=== PATIENT | male | born 1945 | race Caucasian/White ===

== ENCOUNTER 2019-09-28 19:34 | Emergency (ER) | payer MEDICARE ==
[~2019-09-28] VITALS: Ht 160 cm; Wt 82.2 kg
[2019-09-28] MEDS ORDERED: GLIM4TAB5 PO (19:46)
[2019-09-28] MEDS ORDERED: TAMS1CAP17 PO (19:46)
[2019-09-28] MEDS ORDERED: LOPR1TAB6 (19:46)
[2019-09-28] MEDS ORDERED: ASPI81CH33 PO (19:46)
[2019-09-28] MEDS ORDERED: PRAV40TA2 PO (19:46)
[2019-09-28] MEDS ORDERED: AMLO1TAB24 PO (19:46)
[2019-09-28] MEDS ORDERED: METF500T13 PO (19:46)
[2019-09-28] MEDS ORDERED: FENO134C19 PO (19:46)
[2019-09-28] MEDS ORDERED: LISI40TA4 PO (19:46)
[2019-09-28] MEDS ORDERED: LANTINJ4 SC (19:46)
[2019-09-28] MEDS ORDERED: FISH1000 PO (19:46)
[2019-09-28 20:44] LABS: BASO # 0.1 10^3/uL (0.0-0.2); BASO % 0.4 % (0.0-1.0); EOS % 0.2 % (0.0-3.0); HEMOGLOBIN 10.4 g/dl (13.5-17.5); LYMPH # 1.5 10^3/uL (1.5-5.0); LYMPH % 11.5 % (24.0-44.0); MEAN CORPUSCULAR HEMOGLOBIN 29.5 pg (27.0-33.0); MEAN CORPUSCULAR HGB CONC 35.9 g/dl (32.0-36.5); MEAN CORPUSCULAR VOLUME 82.4 fl (80.0-96.0); MONO # 0.6 10^3/uL (0.0-0.8); MONO % 4.8 % (0.0-5.0); NEUTROPHILS # 10.6 10^3/uL (1.5-8.5); NEUTROPHILS % 82.7 % (36.0-66.0); PLATELET COUNT, AUTOMATED 283 10^3/uL (150-450); RED BLOOD COUNT 3.52 10^6/uL (4.30-6.10); WHITE BLOOD COUNT 12.9 10^3/uL (4.0-10.0)
[2019-09-28 20:54] LABS: INR 1.14; PROTHROMBIN TIME 14.3 SECONDS (11.8-14.0)
[2019-09-28 21:22] LABS: BILIRUBIN, URINE MANUAL OBSCURED (NEGATIVE); GLUCOSE, URINE (UA) MANUAL OBSCURED mg/dL (NEGATIVE); KETONE, URINE MANUAL OBSCURED mg/dL (NEGATIVE); UROBILINOGEN, URINE MANUAL OBSCURED mg/dl (NORMAL)
[2019-09-28 21:29] LABS: RBC, URINE TNTC /hpf (0-3)
[2019-09-28 21:32] LABS: SQUAMOUS EPITHELIAL CELL URINE NONE SEEN /hpf (SMALL AMT)
[2019-09-28 21:33] LABS: BACTERIA, URINE SMALL AMOUNT; HYALINE CAST, URINE NONE SEEN /lpf (0-1)
[2019-09-28] MEDS ORDERED: LIDOCAINE 2% 5ML JELLY UROJET TOP ONE (22:15)
[2019-09-28 23:45] VITALS: BP 121/66
[2019-09-29] MEDS ORDERED: SULF1TAB93 PO (10:37)
[2019-09-29] MEDS ORDERED: ASPI-161 PO (11:43)
[2019-09-29] MEDS ORDERED: METO1TAB7 PO (11:43)
== END 2019-09-28 23:48 | disposition home or self-care (01) ==
LOC: M ED 19:34
DX: R00.2 Palpitations (principal); E78.5 Hyperlipidemia, unspecified; E11.9 Type 2 diabetes mellitus without complications; Z79.82 Long term (current) use of aspirin; Z95.5 Presence of coronary angioplasty implant and graft; Z96.0 Presence of urogenital implants
CPT/HCPCS: 36415; 51703; 80047; 81000; 85025; 85610; 86850; 86900; 86901; 87086; 99284; G0463

== ENCOUNTER 2019-09-29 10:10 | Day surgery (SDC) | payer MEDICARE ==
[~2019-09-29] VITALS: Ht 160 cm; Wt 79.9 kg
[~2019-09-29 10:10] MED LIST: AMLO5TAB6 PO; ASPI81CH33 PO; FENO134C19 PO; FISH1000 PO; GLIM4TAB5 PO; LANTINJ4 SC; LISI40TA PO; LOPR1TAB6; METF500T13 PO; PRAV40TA2 PO; TAMS1CAP17 PO
[2019-09-29] MEDS ORDERED: SULF1TAB93 PO (10:37)
[2019-09-29] MEDS ORDERED: LIDOCAINE 2% 5ML JELLY UROJET TOP ONE (11:15)
[2019-09-29] MEDS ORDERED: NS 1,000 ML IV ONE (11:15)
[2019-09-29] MEDS ORDERED: METO1TAB7 PO (11:43)
[2019-09-29] MEDS ORDERED: ASPI-161 PO (11:43)
[2019-09-29 11:57] LABS: BASO # 0.1 10^3/uL (0.0-0.2); BASO % 0.4 % (0.0-1.0); EOS % 0.3 % (0.0-3.0); HEMATOCRIT 27.2 % (42.0-52.0); HEMOGLOBIN 9.7 g/dl (13.5-17.5); LYMPH # 2.3 10^3/uL (1.5-5.0); LYMPH % 18.1 % (24.0-44.0); MEAN CORPUSCULAR HEMOGLOBIN 29.5 pg (27.0-33.0); MEAN CORPUSCULAR HGB CONC 35.7 g/dl (32.0-36.5); MEAN CORPUSCULAR VOLUME 82.7 fl (80.0-96.0); MONO % 7.3 % (0.0-5.0); NEUTROPHILS # 9.5 10^3/uL (1.5-8.5); NEUTROPHILS % 73.4 % (36.0-66.0); PLATELET COUNT, AUTOMATED 286 10^3/uL (150-450); RED BLOOD COUNT 3.29 10^6/uL (4.30-6.10)
[2019-09-29 12:19] LABS: CK-MB VALUE MASS 4.3 NG/ML (<3.6); CPK CREATINE PHOSPHOKINASE 303 U/L (39-308); MB/CK RELATIVE INDEX 1.42 (< OR =4); TROPONIN I < 0.02 NG/ML (< 0.10)
--- NOTE | 2019-09-29 13:22 | REP ---
TWO-VIEW CHEST: REASON: Preoperative evaluation. PRIORS: None. FINDINGS: The superior mediastinal structures are midline. The cardiac silhouette is unremarkable in size, shape, and position. The diaphragmatic surfaces of the lungs are regular, and the costophrenic angles are clear. The pulmonary carmichael are clear. The imaged osseous structures are intact. IMPRESSION: There is no acute cardiopulmonary disease. Electronically Signed by Samm Salvador DO 09/29/2019 01:30 P
[2019-09-29] MEDS ORDERED: METOCLOPRAMIDE INJ 10MG/2ML VIAL (J2765 PER 1) As Ordered ONE (14:32)
[2019-09-29] MEDS ORDERED: propofoL 200 MG/20 ML VIAL As Ordered ONE (14:32)
[2019-09-29] MEDS ORDERED: ONDANSETRON 4MG/2ML VIAL As Ordered ONE (14:32)
[2019-09-29] MEDS ORDERED: LIDOCAINE 2% 100MG/5ML SDV (FOR ANES.) As Ordered ONE (14:32)
[2019-09-29] MEDS ORDERED: ROCURONIUM BROMIDE 50 MG/5 ML VIAL As Ordered ONE (14:32)
[2019-09-29] MEDS ORDERED: MIDAZOLAM INJ 2MG/2ML VIAL (J2250 PER 1MG) As Ordered ONE (14:32)
[2019-09-29] MEDS ORDERED: fentaNYL 100 MCG/2 ML INJECTION (J3010) As Ordered ONE ×2 (14:33→15:23)
[2019-09-29] MEDS ORDERED: ceFAZolin 2 GM/D5W 50 ML IV BAG (J0690 PER 500MG) As Ordered ONE (14:42)
--- NOTE | 2019-09-29 14:47 | SMCUROLCON ---
Urology Consultation General Date of Consultation 09/29/19 Reason For Consultation This patient is seen for Gross Hematuria. History of Present Illness This is a 74 y/o M w/ a PMH significant for CAD s/p cardiac stents, HTN, HL, and DM2, presenting to the ER w/ gross hematuria. He notes the hematuria started a few days ago and has gotten worse. He was seen in the ER last night and had a 24Fr 3-way catheter placed. He notes that catheter fell out at some point o/n and he has not been able to void since then. He has had blood dripping from his meatus. He had a CT urogram done recently that was notable for a large amount of clot and a possible bladder mass. He denies light headedness or weakness. He denies chest pain or SOB. He is not on blood thinners. He denies dysuria. Past Medical History Medical History see HPI Surgical Hstory see HPI Medications Current Medications Current Medications Medications (Trade) Dose Ordered Sig/Lynnette Route PRN Reason Start Time Stop Time Status Last Admin Dose Admin Home Med (Med Rec Complete!) ASDIRECTED XX 09/29/19 11:45 09/29/19 11:46 DC Allergies Allergies: Coded Allergies: No Known Allergies (Unverified , 09/28/19) Review of Systems Constitutional: Denies: Fever, Chills, Sweats, Weakness, Malaise ENT: Denies: Head Aches, Sore Throat, Epistaxis Skin: Denies: Rash, Lesions, Breakdown, Nail Changes Pulmonary: Denies: Dyspnea, Cough Cardiovascular: Denies Chest Pain, Denies Palpitations Gastrointestinal: Denies: Nausea, Vomiting, Abdominal Pain Genitourinary: Reports: Hematuria, Retention Musculoskeletal: Denies: Neck Pain, Back Pain Psych: Reports: Mood Normal Physical Examination General Exam: Alert, Cooperative Chest Exam: Normal air movement Heart Exam: Regular Rhythm Abdomen Exam: Soft Male Exam 3-way catheter in place w/ dark red urine draining Skin Exam: Nl turgor and temperature Neuro Exam: Normal Speech Psych Exam: Mood NL Vital Signs/I&O Vital Signs Date Time Temp Pulse Resp B/P (MAP) Pulse Ox O2 Delivery O2 Flow Rate FiO2 09/29/19 14:00 98.5 112 20 166/79 (108) 98 Room Air Laboratory Data 24H Labs Laboratory Tests 2 09/29/19 11:36: Immature Granulocyte % (Auto) 0.5, Neutrophils (%) (Auto) 73.4H, Lymphocytes (%) (Auto) 18.1L, Monocytes (%) (Auto) 7.3H, Eosinophils (%) (Auto) 0.3, Basophils (%) (Auto) 0.4, Neutrophils # (Auto) 9.5H, Lymphocytes # (Auto) 2.3, Monocytes # (Auto) 1.0H, Eosinophils # (Auto) 0.0, Basophils # (Auto) 0.1, Nucleated Red Blood Cells % (auto) 0.0, Total Creatine Kinase 303, Creatine Kinase MB 4.3H, Creatine Kinase MB Relative Index 1.42, Troponin I < 0.02 09/29/19 11:45: Coronavirus (COVID-19)(PCR) NEGATIVE CBC/BMP Laboratory Tests 09/29/19 11:36 Assessment This is a 74 y/o M w/ persistent painless gross hematuria. I recommended that we take him to the OR today for cystoscopy, clot evacuation, possible transurethral resection of bladder tumor. After a discussion of the risks and benefits, informed consent was signed. Plan - to OR now - EKG and CXR obtained ER - NPO - 2g chantale LORETO ROY MD Sep 29, 2019 14:47
[2019-09-29] MEDS ORDERED: ceFAZolin SOD 2 GM in IV 1 EA IV ONE (15:00)
[2019-09-29] MEDS ORDERED: PHENYLephrine HCL 500 MCG/5 ML (100MCG/ML) SYRINGE (J2370) As Ordered ONE (15:37)
[2019-09-29] MEDS ORDERED: SUGAMMADEX SODIUM 500 MG/5 ML VIAL (BRIDION) As Ordered ONE (15:39)
[2019-09-29] MEDS ORDERED: fentaNYL 100 MCG/2 ML INJECTION (J3010) IV PRN (16:30)
[2019-09-29] MEDS ORDERED: ONDANSETRON 4MG/2ML VIAL IV PRN (16:30)
[2019-09-29] MEDS ORDERED: oxyCODONE 5MG TAB PO PRN (16:30)
[2019-09-29] MEDS ORDERED: HYDROMORPHONE HCL 0.5 MG/ 0.5 ML SYRINGE (J1170 PER 1) IV PRN (16:30)
[2019-09-29] MEDS ORDERED: ACETAMINOPHEN TAB 650MG DOSE (2X325MG) PO PRN (16:30)
[2019-09-29] MEDS ORDERED: NS 1,000 ML IV SCH (16:30)
[2019-09-29 18:40] VITALS: BP 135/62
--- NOTE | 2019-09-29 18:46 | ECGEPIP ---
[facility] - ED Test Date: 2019-09-29 Pat Name: CARMEN BUCHANAN Department: Room: - Gender: Male Passenger Attendant: : [id number] Requested By: LEONILA Johnson PA-C Order Number: [id number] Reading MD: Tess Guerrero Measurements Intervals Weed Rate: 94 P: 32 HI: 139 QRS: 26 QRSD: 89 T: 60 QT: 332 QTc: 417 Interpretive Statements SINUS RHYTHM ST DEVIATION AND MODERATE T-WAVE ABNORMALITY, CONSIDER LATERAL ISCHEMIA NO PRIOR ECG FOR COMPARISON CLINICAL CORRELATION ADVISED Electronically Signed on 09-29-2019 18:46:34 EDT by Tess Guerrero
--- NOTE | 2019-10-05 06:55 | RO ---
DATE OF PROCEDURE: 09/29/2019 PREPROCEDURE DIAGNOSIS: Gross hematuria. POSTPROCEDURE DIAGNOSIS: Gross hematuria, benign prostatic hyperplasia. PROCEDURE: Cystoscopy, clot evacuation, fulguration of bleeding. SURGEON: Dr. Alec Loza MOTION GRAPHICS DESIGNER: None. ANESTHESIA: General. OPERATIVE INDICATIONS: This is a 74-year-old male with recurrent gross hematuria, and clot urinary retention. He was brought to the operating room today to investigate and treat this. DESCRIPTION OF PROCEDURE: The patient was brought to the operating room and general anesthesia was induced. Prophylactic antibiotics were infused. He was then placed in the dorsal lithotomy position and prepped and draped in the usual sterile fashion. At this point, a resectoscope was inserted into the urethral meatus and advanced into the bladder using the visual obturator. Once inside the bladder, a very large amount of clots was seen. I then utilized a Urovac evacuator to evacuate all the clots from the bladder. A large amount of clots was removed. Ultimately, once they were all removed, I was able to examine the bladder thoroughly. There were no tumors inside the bladder. The bladder was not trabeculated. There were no bladder stones. There did appear to be a small amount of bleeding coming from the patient's prostate. The patient had trilobar benign prostatic hyperplasia with a very large and vascular median lobe protruding into the bladder. There was not significant bleeding at this time but I did cauterize several areas on all three lobes of the prostate with the hope that it would decrease his chance of bleeding again soon. Once satisfied that there was good hemostasis, the resectoscope was removed and then an 18 [place] Coude catheter was inserted into the bladder. Of note, bilateral ureteral orifices were orthotopic and both effluxed clear urine. Once the catheter was placed, the balloon was filled with 10 mL of sterile water and then the catheter was connected to gravity drainage. This marked the conclusion of the procedure. The patient was taken out of the dorsal lithotomy position, awakened from anesthesia and transported to the recovery room in stable condition. Estimated blood loss: 15 mL. Complications: None. Specimen: None. Plan: The patient will followup in the clinic next week for catheter removal, as well as a prostate biopsy for an elevated prostate specific antigen. TOSHIA
== END 2019-09-29 19:00 | disposition home or self-care (01) ==
LOC: M ED 10:10 → M SDC 10:48
PROVIDERS: ATTEND Urology
DX: R31.0 Gross hematuria (principal); N40.0 Benign prostatic hyperplasia without lower urinary tract symptoms; I10 Essential (primary) hypertension; E11.9 Type 2 diabetes mellitus without complications; Z79.84 Long term (current) use of oral hypoglycemic drugs; Z79.899 Other long term (current) drug therapy; Z98.61 Coronary angioplasty status; E78.00 Pure hypercholesterolemia, unspecified; Z79.82 Long term (current) use of aspirin
CPT/HCPCS: 52001; 52224; 71046; 82550; 82553; 84484; 85025; 86850; 86900; 86901; 93005; 96360; 96361; 99285; J0690; J2250; J2370; J2405; J2765; J3010; U0002

== ENCOUNTER → 2019-10-05 | Outpatient (CLI) | payer MEDICARE ==
[~2019-10-05] MED LIST changes: +ASPI-161 PO; +CIPR-249 PO; +DOCU100C16 PO; +METO1TAB7 PO; +PERCOCET PO; +SULF1TAB93 PO
--- NOTE | 2019-10-05 16:58 | REPPI ---
TRANSRECTAL ULTRASOUND PROSTATE WITH ULTRASOUND GUIDANCE FOR PROSTATE BIOPSY: Transrectal ultrasound prostate performed. Prostate measures 5.6 x 8.0 x 6.8 cm for a total volume of 158 mL. Echotexture is heterogeneous. Scattered small cysts and calcifications are noted. There is a nodule anteriorly on the left measuring 13 x 9 mm. Seminal vesicles are symmetrical. Ultrasound guidance was provide for Dr. Loza who performed ultrasound-guided biopsy of the prostate. Electronically Signed by Alfie Omalley MD 10/07/2019 09:51 A
== END ==
LOC: M SMT PRO 08:36 → EDUNIT# 08:45
PROVIDERS: ATTEND Urology
DX: R97.20 Elevated prostate specific antigen [PSA] (principal)
CPT/HCPCS: 55700; 76872; 76942; G0416

== ENCOUNTER → 2019-10-23 | Outpatient (CLI) | payer MEDICARE | LOC: M LABSMTC 10:05 | PROVIDERS: ATTEND Anesthesiology | DX: Z01.818 Encounter for other preprocedural examination (principal); Z11.59 Encounter for screening for other viral diseases | CPT/HCPCS: C9803; U0003 ==

== ENCOUNTER 2019-10-26 10:58 | Inpatient (IN) | payer MEDICARE ==
[~2019-10-26] VITALS: Ht 160 cm; Wt 78.8 kg
[~2019-10-26 10:58] MED LIST changes: +AMLO1TAB24 PO; -AMLO5TAB6 PO; -CIPR-249 PO; -DOCU100C16 PO; +HEPARIN SOD (PORCINE) 5000UNITS/ML 1ML VIAL/SYRINGE SQ ONE; +LIDOCAINE 1% MDV 20ML VIAL SQ PRN; +LR 1,000 ML IV ONE; -PERCOCET PO; +ceFAZolin SOD 2 GM in IV 1 EA IV ONE
[2019-10-26] MEDS ORDERED: D5W 250 ML IV ONE (12:45)
[2019-10-26] MEDS ORDERED: propofoL 200 MG/20 ML VIAL As Ordered ONE (13:22)
[2019-10-26] MEDS ORDERED: METOCLOPRAMIDE INJ 10MG/2ML VIAL (J2765 PER 1) As Ordered ONE (13:22)
[2019-10-26] MEDS ORDERED: LIDOCAINE 2% 100MG/5ML SDV (FOR ANES.) As Ordered ONE (13:22)
[2019-10-26] MEDS ORDERED: ROCURONIUM BROMIDE 50 MG/5 ML VIAL As Ordered ONE ×3 (13:22→17:43)
[2019-10-26] MEDS ORDERED: fentaNYL 250 MCG/5 ML INJECTION (J3010) As Ordered ONE (13:22)
[2019-10-26] MEDS ORDERED: ONDANSETRON 4MG/2ML VIAL As Ordered ONE (13:22)
[2019-10-26] MEDS ORDERED: VANCOMYCIN 1000MG/20ML VIAL As Ordered ONE (13:28)
[2019-10-26] MEDS ORDERED: LIDOCAINE 1% SDV 30ML VIAL As Ordered ONE (13:38)
[2019-10-26] MEDS ORDERED: BUPIVACAINE HCL 0.25% 30ML VIAL As Ordered ONE (13:38)
[2019-10-26] MEDS ORDERED: GENTAMICIN 80 MG in IV 1 EA IV ONE (13:45)
[2019-10-26] MEDS ORDERED: VANCOMYCIN HCL 1,000 MG, VIAL MATE ADAPTER 1 EACH in D5W 250 ML IV ONE (13:45)
[2019-10-26] MEDS ORDERED: HEPARIN SOD (PORCINE) 5000UNITS/ML 1ML VIAL/SYRINGE As Ordered ONE (14:08)
[2019-10-26] MEDS ORDERED: DESFLURANE 240 ML INHALANT As Ordered ONE (15:36)
[2019-10-26] MEDS ORDERED: fentaNYL 100 MCG/2 ML INJECTION (J3010) As Ordered ONE (17:44)
[2019-10-26] MEDS ORDERED: SEVOFLURANE INHAL SOLN 250 ML BTL As Ordered ONE (19:13)
[2019-10-26] MEDS ORDERED: PHENYLephrine HCL 500 MCG/5 ML (100MCG/ML) SYRINGE (J2370) As Ordered ONE (19:36)
[2019-10-26] MEDS ORDERED: ePHEDrine SULFATE 25 MG/5 ML(5MG/ML) SYRINGE As Ordered ONE (20:06)
[2019-10-26] MEDS ORDERED: SUGAMMADEX SODIUM 500 MG/5 ML VIAL (BRIDION) As Ordered ONE (20:43)
[2019-10-26] MEDS: HumaLOG INSULIN (NovoLOG) PER UNIT SC SCH (21:00)
[2019-10-26] MEDS ORDERED: LR 1,000 ML IV SCH (21:30)
[2019-10-26] MEDS ORDERED: GLUCAGON INJ 1MG VIAL SC PRN (21:30)
[2019-10-26] MEDS ORDERED: MEPERIDINE INJ 25 MG/ML VIAL (J2175) IV PRN (21:30)
[2019-10-26] MEDS ORDERED: GLUCOSE 4GM CHEW TABLET PO PRN (21:30)
[2019-10-26] MEDS ORDERED: METOCLOPRAMIDE INJ 10MG/2ML VIAL (J2765 PER 1) IV PRN (21:30)
[2019-10-26] MEDS ORDERED: PERCOCET 5MG/325MG TAB PO PRN (21:30)
[2019-10-26] MEDS ORDERED: MORPHINE 2 MG/ML 1ML VIAL (J2270) IV PRN (21:30)
[2019-10-26] MEDS ORDERED: fentaNYL 100 MCG/2 ML INJECTION (J3010) IV PRN (21:30)
[2019-10-26] MEDS ORDERED: NS 1,000 ML IV SCH (21:30)
[2019-10-26] MEDS ORDERED: ONDANSETRON 4MG/2ML VIAL IV PRN ×2 (21:30)
[2019-10-26] MEDS ORDERED: ACETAMINOPHEN TAB 650MG DOSE (2X325MG) PO PRN (21:30)
[2019-10-26] MEDS ORDERED: DEXTROSE 50% 50 ML SYRINGE IV PRN (21:30)
--- NOTE | 2019-10-26 21:30 | ROOPDOC ---
[facility] Report Of Operation Report of Operation DATE OF PROCEDURE: 10/26/19 PREPROCEDURE DIAGNOSES: Prostate Cancer. POSTPROCEDURE DIAGNOSES: Prostate Cancer. PROCEDURE: Robotic-assisted Laparoscopic Radical Prostatectomy, Bladder Neck Reconstruction. SURGEON: Loreto Farrell MD SUPERINTENDENT MECHANICAL: Sheeba Gupta NP ANESTHESIA: General. OPERATIVE INDICATIONS: This is a 74 year old male with clinical T1c [place] 3+3 prostate cancer, here today for treatment. DESCRIPTION OF PROCEDURE: The patient was brought to the operating room and general anesthesia was induced. Prophylactic antibiotics were infused. He was then placed in the supine position and prepped and draped in the usual sterile fashion. At this point, a Lloyd catheter was inserted into the bladder and the balloon was filled with 10 mL of sterile water. We then made a midline incision just above the umbilicus for an 8 mm port. A Veress needle was utilized to achieve pneumoperitoneum. Next, an 8 mm port was inserted into the incision and subsequently a camera was inserted. There were no injuries from the Veress needle or initial trocar placement. Then three robotic ports were placed in the usual configuration in line just below the level of the umbilicus. A 12 mm assistant spa director port was inserted lateral to the camera port. The robot was then docked. Lysis of adhesions between the sigmoid colon and abdominal wall was then performed. The bladder was then released from the anterior abdominal wall using electrocautery. Once the bladder was dropped, the fat overlying the prostate was cleared using electrocautery. The superficial dorsal vein was controlled with electrocautery. The endopelvic fascia was opened on both sides and the dorsal venous complex was cleared. Next, a #0 Vicryl [id number] stitch was placed around the dorsal venous complex. Once that was done, the bladder was opened and dissected away from the prostate. Of, note this was very difficult as the patient had significant bilobar prostatic hyperplasia with ingrowth into the bladder. Because of the large prostate the resultant bladder neck was at least 8 times the normal bladder neck size. The large lobes of the prostate also made posterior dissection very challenging and therefore I decided not to attempt to dissect out the vasa deferentia and the seminal vesicles. I ligated and transected bilateral prostatic pedicles using the Harmonic scalpel. The pedicles were carried towards the apex. After taking care of the pedicles the dorsal venous complex was transected with electrocautery. The urethra was transected. The prostate was then mobilized off the rectum using cold scissors. At this point, we checked for hemostasis and it appeared very good. Once hemostasis was confirmed, I then moved on to perform the vesicourethral anastomosis. Prior to doing this, I had to reconstruct the bladder neck and taper it down. I did this in 2 layers, first with a running #2-0 Vicryl stitch and then second with an interrupted #2-0 Vicryl stitch to reinforce the closure. Once the bladder neck was tapered down, the vesicourethral anastomosis was performed. The vesicourethral anastomosis was performed in running fashion using a Quill stitch. Once this was done, the final #20-Slovak Lloyd catheter was placed. The balloon was filled with 15 mL of sterile water. Upon completion of the vesicourethral anastomosis, it was tested by filling the bladder with saline. There appeared to be a small leak from the posterior bladder neck. At this point, the prostate was placed in an Endo Catch bag for future retrieval. A Naresh-Marcelo drain was brought in through the left robotic port skin site and the drain was positioned anterior to the bladder. The robot was then undocked. A Rolando-Kerri fascial closure device was utilized to place a #0 Vicryl suture through the fascia of the 12 mm assistant spa director port. The drain was secured to the skin with #2-0 Ethilon suture. The prostate was then extracted from the camera port site after the skin was extended. The fascia in this incision was then closed with a running #0 Vicryl stitch. Next, all the remaining ports were removed and there did not appear to be any bleeding from any of the port sites. The previously placed #0 Vicryl free ties through the assistant spa director port were then tied down and all incisions were irrigated. Last, all of the incisions were closed with running subcuticular #4-0 Monocryl sutures. Local anesthesia was applied. Dermabond was then applied to the incisions. This marked the conclusion of the procedure. The patient was then awakened from anesthesia and transported to the recovery room in stable condition. ESTIMATED BLOOD LOSS: 800 mL. COMPLICATIONS: None. SPECIMENS: Prostate. PLAN: The patient will be admitted to the hospital postoperatively, and he will likely be discharged home within the next 2 days. LORETO FARRELL MD Oct 26, 2019 21:30
[2019-10-26 21:54] LABS: HEMATOCRIT 26.9 % (42.0-52.0); HEMOGLOBIN 8.3 g/dl (13.5-17.5); MEAN CORPUSCULAR HEMOGLOBIN 27.2 pg (27.0-33.0); MEAN CORPUSCULAR HGB CONC 30.9 g/dl (32.0-36.5); MEAN CORPUSCULAR VOLUME 88.2 fl (80.0-96.0); PLATELET COUNT, AUTOMATED 415 10^3/uL (150-450); RED BLOOD COUNT 3.05 10^6/uL (4.30-6.10); WHITE BLOOD COUNT 21.8 10^3/uL (4.0-10.0)
[2019-10-26 22:15] VITALS: BP 133/54
[2019-10-26 22:17] LABS: CALCIUM LEVEL 7.9 MG/DL (8.8-10.2); CREATININE FOR GFR 2.45 MG/DL (0.70-1.30); GLOMERULAR FILTRATION RATE 27.7 (>42); POTASSIUM SERUM 5.7 MEQ/L (3.5-5.1)
[2019-10-26 22:45] VITALS: BP 130/58
[2019-10-26] MEDS: HEPARIN SOD (PORCINE) 5000UNITS/ML 1ML VIAL/SYRINGE SC SCH (22:52)
[2019-10-26] MEDS: DOCUSATE SODIUM 100 MG CAP PO SCH (22:52)
[2019-10-26] MEDS: ceFAZolin SOD 1 GM in D5W MINI-BAG PLUS 50 ML IV SCH (23:13)
[2019-10-26 23:15] VITALS: BP 129/51
[2019-10-27] VITALS (18 sets, daily range): BP systolic 114–144; BP diastolic 51–83
[2019-10-27] MEDS: PERCOCET 5MG/325MG TAB PO PRN ×4 (05:13→19:38)
[2019-10-27 05:42] LABS: HEMATOCRIT 24.4 % (42.0-52.0); HEMOGLOBIN 7.7 g/dl (13.5-17.5); MEAN CORPUSCULAR HEMOGLOBIN 26.8 pg (27.0-33.0); MEAN CORPUSCULAR HGB CONC 31.6 g/dl (32.0-36.5); PLATELET COUNT, AUTOMATED 325 10^3/uL (150-450); RED BLOOD COUNT 2.87 10^6/uL (4.30-6.10); WHITE BLOOD COUNT 12.6 10^3/uL (4.0-10.0)
[2019-10-27 06:06] LABS: CALCIUM LEVEL 8.4 MG/DL (8.8-10.2); CREATININE FOR GFR 2.01 MG/DL (0.70-1.30); GLOMERULAR FILTRATION RATE 34.8 (>42); POTASSIUM SERUM 4.8 MEQ/L (3.5-5.1)
[2019-10-27] MEDS: ceFAZolin SOD 1 GM in D5W MINI-BAG PLUS 50 ML IV SCH ×3 (06:37→21:00)
[2019-10-27] MEDS: HEPARIN SOD (PORCINE) 5000UNITS/ML 1ML VIAL/SYRINGE SC SCH ×3 (06:37→21:01)
[2019-10-27] MEDS: HumaLOG INSULIN (NovoLOG) PER UNIT SC SCH ×4 (07:30→21:00)
--- NOTE | 2019-10-27 08:02 | IPNPDOC ---
Subjective Review oF Systems Chief Complaint The patient is a 74-year-old male admitted with a reason for visit of Prostate Cancer. Events since Last Encounter No acute events o/n. Good pain control. No n/v. Has not ambulated yet. No f/c/ns. Objective Physical Examination General Exam: Alert, Cooperative, No Acute Distress ABDOMEN EXAM: Soft, Tenderness (mild), Other (nondisstended; incisions clean/dry/intact; DANNY w/ serosang output) Skin Exam: Nl turgor and temperature Neuro Exam: Normal Speech Psych Exam: Mental status NL, Mood NL Other physical findings catheter draining light pink urine Vital Signs/I&O Vital Signs Date Time Temp Pulse Resp B/P (MAP) Pulse Ox O2 Delivery O2 Flow Rate FiO2 10/27/19 06:00 98.1 90 16 133/71 (91) 97 Nasal Cannula 2.0 I&O- Last 24 Hours up to 6 AM 10/27/19 06:00 Intake Total 3480 ml Output Total 895 ml Balance 2585 ml Laboratory Data Labs 24H Laboratory Tests 2 10/26/19 11:37: Bedside Glucose (Misc Panel) 62L 10/26/19 21:31: Nucleated Red Blood Cells % (auto) 0.0, Anion Gap 15, Glomerular Filtration Rate 27.7L, Calcium Level 7.9L 10/26/19 21:55: Bedside Glucose (Misc Panel) 232H 10/27/19 05:03: Nucleated Red Blood Cells % (auto) 0.0, Anion Gap 6L, Glomerular Filtration Rate 34.8L, Calcium Level 8.4L CBC/BMP Laboratory Tests 10/26/19 21:31 10/27/19 05:03 FSBS Laboratory Tests Test 10/26/19 11:37 10/26/19 21:55 Range/Units Bedside Glucose (Misc Panel) 62 232 83-110 MG/DL Assessment/Plan Date Seen The patient was seen on 10/27/19. Patient Summary This is a 74 y/o M POD1 s/p RALP w/ bladder neck reconstruction. Good UOP. Minimal DANNY output. Hb 7.7 (patient anemic at baseline w/ preop Hb 9.7). Cr trending down, 2 this morning. Plan/VTE VTE Prophylaxis Ordered?: Yes VTE Exclusion Mechanical Proph: N/A:VTE Prophy Ordered VTE Exclusion Pharmacological: N/A:VTE Prophy Ordered Plan/Urinary Catheter Urinary Catheter: Other Catheter: (catheter will need to stay in for at least 14 days for the bladder to heal) Plan - d/c IVF - transfuse 2u PRBC - strict I/Os - cont home meds - SCDs in bed - ambulate - SQH - incentive spirometry - clears for now LORETO FARRELL MD Oct 27, 2019 08:01
[2019-10-27] MEDS: DOCUSATE SODIUM 100 MG CAP PO SCH ×2 (08:59→20:59)
[2019-10-27] MEDS: amLODIPine 5 MG TAB PO SCH (09:00)
[2019-10-27] MEDS: PRAVASTATIN 20 MG TAB PO SCH (09:00)
[2019-10-27] MEDS: lisinopriL 40 MG TAB PO SCH (09:00)
[2019-10-27] MEDS: METOPROLOL SUCC *XL* 25MG TAB (TopROL *XL*) PO SCH (09:01)
[2019-10-27] MEDS ORDERED: VANCOMYCIN HCL 1,000 MG, VIAL MATE ADAPTER 1 EACH in D5W 250 ML IV SCH (14:00)
[2019-10-27] MEDS ORDERED: GENTAMICIN 80 MG in IV 1 EA IV SCH (15:00)
[2019-10-28] MEDS: PERCOCET 5MG/325MG TAB PO PRN ×3 (01:36→12:36)
[2019-10-28 02:00] VITALS: BP 130/76
[2019-10-28 04:20] VITALS: O2SAT 95
[2019-10-28] MEDS: HEPARIN SOD (PORCINE) 5000UNITS/ML 1ML VIAL/SYRINGE SC SCH ×2 (05:37→12:31)
[2019-10-28] MEDS: ceFAZolin SOD 1 GM in D5W MINI-BAG PLUS 50 ML IV SCH (05:37)
[2019-10-28 06:00] VITALS: BP 114/67
[2019-10-28 06:11] LABS: CREATININE FOR GFR 1.44 MG/DL (0.70-1.30); GLOMERULAR FILTRATION RATE 51.2 (>42); POTASSIUM SERUM 4.4 MEQ/L (3.5-5.1)
[2019-10-28 06:13] LABS: HEMATOCRIT 31.7 % (42.0-52.0); MEAN CORPUSCULAR HEMOGLOBIN 27.2 pg (27.0-33.0); MEAN CORPUSCULAR HGB CONC 32.5 g/dl (32.0-36.5); MEAN CORPUSCULAR VOLUME 83.9 fl (80.0-96.0); PLATELET COUNT, AUTOMATED 322 10^3/uL (150-450); RED BLOOD COUNT 3.78 10^6/uL (4.30-6.10); WHITE BLOOD COUNT 11.8 10^3/uL (4.0-10.0)
[2019-10-28 06:17] LABS: HEMOGLOBIN 10.3 g/dl (13.5-17.5)
[2019-10-28] MEDS: HumaLOG INSULIN (NovoLOG) PER UNIT SC SCH ×2 (07:30→12:32)
--- NOTE | 2019-10-28 07:55 | IPNPDOC ---
Subjective Review oF Systems Chief Complaint The patient is a 74-year-old male admitted with a reason for visit of Prostate Cancer. Events since Last Encounter No acute events o/n. Good pain control. Patient has ambulated w/o difficulty. Tolerating regular diet. No n/v. No flatus yet. No f/c/ns. Objective Physical Examination General Exam: Alert, Cooperative, No Acute Distress ABDOMEN EXAM: Soft, Tenderness (mild), Other (nondisstended; incisions clean/ dry/intact; DANNY w/ serous output) Skin Exam: Nl turgor and temperature Neuro Exam: Normal Speech Psych Exam: Mental status NL, Mood NL Other physical findings catheter draining clear yellow urine Vital Signs/I&O Vital Signs Date Time Temp Pulse Resp B/P (MAP) Pulse Ox O2 Delivery O2 Flow Rate FiO2 10/28/19 06:08 16 Room Air 10/28/19 06:00 97.9 77 114/67 (83) 92 10/27/19 10:00 2.0 I&O- Last 24 Hours up to 6 AM 10/28/19 06:00 Intake Total 2820 ml Output Total 3050 ml Balance -230 ml Laboratory Data Labs 24H Laboratory Tests 2 10/27/19 11:30: Bedside Glucose (Misc Panel) 145H 10/27/19 16:46: Bedside Glucose (Misc Panel) 136H 10/27/19 21:28: Bedside Glucose (Misc Panel) 147H 10/28/19 05:34: Nucleated Red Blood Cells % (auto) 0.0, Anion Gap 3L, Glomerular Filtration Rate 51.2, Calcium Level 9.0 CBC/BMP Laboratory Tests 10/28/19 05:34 FSBS Laboratory Tests Test 10/27/19 11:30 10/27/19 16:46 10/27/19 21:28 Range/Units Bedside Glucose (Misc Panel) 145 136 147 83-110 MG/DL Assessment/Plan Date Seen The patient was seen on 10/28/19. Patient Summary This is a 74 y/o M POD2 s/p RALP w/ bladder neck reconstruction. His Hb responded well to the 2u PRBC, now 10.3. His Cr is trending down, now 1.4. Good UOP. Minimal DANNY output. Plan/VTE VTE Prophylaxis Ordered?: Yes VTE Exclusion Mechanical Proph: N/A:VTE Prophy Ordered VTE Exclusion Pharmacological: N/A:VTE Prophy Ordered Plan/Urinary Catheter Urinary Catheter: Other Catheter: (catheter will need to stay in for at least 14 days for the bladder to heal) Plan - percocet prn pain - continue home meds - strict I/Os - SCDs in bed - ambulate - incentive spirometry - SQH - regular diet - likely discharge home later today w/ catheter and DANNY drain LORETO FARRELL MD Oct 28, 2019 07:55
[2019-10-28 09:00] VITALS: BP 138/78
[2019-10-28] MEDS: lisinopriL 40 MG TAB PO SCH (10:31)
[2019-10-28] MEDS: DOCUSATE SODIUM 100 MG CAP PO SCH (10:31)
[2019-10-28] MEDS: PRAVASTATIN 20 MG TAB PO SCH (10:33)
[2019-10-28] MEDS: amLODIPine 5 MG TAB PO SCH (10:33)
[2019-10-28 10:34] VITALS: BP 138/78
[2019-10-28] MEDS: METOPROLOL SUCC *XL* 25MG TAB (TopROL *XL*) PO SCH (10:34)
[2019-10-28] MEDS ORDERED: DOCU100C16 PO (13:10)
[2019-10-28] MEDS ORDERED: PERCOCET PO (13:10)
[2019-10-28] MEDS ORDERED: CIPR-249 PO (13:10)
[2019-10-28 14:00] VITALS: BP 139/59
--- NOTE | 2019-11-07 23:22 | DSES ---
DATE OF ADMISSION: 10/26/2019 DATE OF DISCHARGE: 10/28/2019 ADMISSION DIAGNOSIS: 1. Prostate cancer. DISCHARGE DIAGNOSIS: 1. Prostate cancer, anemia. ADMITTING PHYSICIAN: Alec Loza MD. DISCHARGE PHYSICIAN: Alec Loza MD. PROCEDURE PERFORMED: Robotic assisted laparoscopic radical prostatectomy with bladder neck reconstruction on October 26, 2019. HISTORY OF PRESENT ILLNESS: This is a 74-year-old male with prostate cancer and urinary retention, who underwent the above procedure. He was admitted to the hospital postoperatively. HOSPITALIZATION COURSE: The patient was admitted to the hospital after undergoing the above procedure. His postoperative course was notable for a gradual drop in his hemoglobin to 7.7 postoperative day #1. This was not surprising as he was anemic at baseline with a preoperative hemoglobin of 9.7. Given his age and cardiac history, the decision was made to transfuse him 2 units of packed red blood cells on postoperative day #1. He tolerated this well. Also of note, his serum creatinine on postoperative day #1 was 2 from a baseline of 1.2. He had excellent urine output on postoperative day #1 with very minimal output from his Naresh-Marcelo drain. On postoperative day #2, his hemoglobin level seemed to up to 10.2 after this transfusion. Also, his serum creatinine started trending down and was 1.4 on postoperative day #2. He continued to have excellent urine output and minimal output from the Naresh-Marcelo drain. By postoperative day #2, he was ambulating well. He had very good pain control on oral pain medication. Also, his diet had been advanced and he is tolerating a regular diet. Since the patient was doing well, he was deemed ready for discharge home on postoperative day #2. He was discharge home with both his catheter and his Naresh-Marcelo drain in place. The plan is for him to keep his catheter and drain in for two weeks. We are keeping the catheter in for longer given the extensive bladder neck reconstruction that was necessary. We will get a cystogram prior to removing his catheter and then will go for his pathology also his followup appointment. We will also remove his Naresh-Amrcelo drain at that time. TOSHIA
== END 2019-10-28 14:05 | disposition home or self-care (01) | DRG 714 ==
LOC: M SDC 10:58 → M MSPAV 22:14 → M SDC 10-27 16:34 → M MSPAV 10-27 16:35
PROVIDERS: ADMIT Urology; ATTEND Urology
PROC: 8E0W4CZ Robotic Assisted Procedure of Trunk Region, Percutaneous Endoscopic Approach (ICD-10-PCS; 2019-10-26)
PROC: 0VT08ZZ Resection of Prostate, Via Natural or Artificial Opening Endoscopic (ICD-10-PCS; principal; 2019-10-26 12:45)
DX: C61 Malignant neoplasm of prostate (principal); D64.9 Anemia, unspecified

== ENCOUNTER → 2019-11-08 | Outpatient (CLI) | payer MEDICARE ==
[~2019-11-08] MED LIST changes: +CIPR-249 PO; +CYSTO-CONRAY II 17.2% 250ML VIAL (Q9958) As Ordered ONE; +DOCU100C16 PO; -HEPARIN SOD (PORCINE) 5000UNITS/ML 1ML VIAL/SYRINGE SQ ONE; -LIDOCAINE 1% MDV 20ML VIAL SQ PRN; -LR 1,000 ML IV ONE; +PERCOCET PO; -ceFAZolin SOD 2 GM in IV 1 EA IV ONE
--- NOTE | 2019-11-08 23:30 | REP ---
REASON: Assess for urine extravasation. Four spot views of the urinary bladder were obtained during cystography. Contrast-opacified urinary bladder shows no evidence of extravasation of contrast. There is a filling defect in the urinary bladder floor, consistent with a Lloyd balloon catheter. Electronically Signed by Samm Salvador DO 11/09/2019 11:32 A
== END ==
LOC: M RADPRO 10:22
PROVIDERS: ATTEND Urology
DX: R32 Unspecified urinary incontinence (principal)
CPT/HCPCS: 51600; 74430; Q9958

== ENCOUNTER → 2020-07-11 | Outpatient (CLI) | payer MEDICARE ==
[~2020-07-11] MED LIST changes: +BICA50TA9 PO; -CYSTO-CONRAY II 17.2% 250ML VIAL (Q9958) As Ordered ONE; -LISI40TA PO; +LISI40TA4 PO
--- NOTE | 2020-07-11 13:38 | RADONC.CN ---
Radiation Oncology Hx/Consult Radiation Oncology Consult Date of Service: Jul 11, 2020 Pt Identifier Alvarez Olmedo is a 75 year old male former smoker with prostate cancer [id number] [place] 3+4=7 post operative PSA detectable, most recently rising to 0.76 on 06/26/20. He is s/p RALP on 10/26/19. Diagnosis/Treatment History Oncologic History Followed by Dr. Farrell for massively enlarged prostate and acute retention requiring catheterization He had known T1c [place] 3+3=6 in 4/12 cores s/p biopsy on 10/05/19 complicated by acute retention He underwent RALP on 10/26/19 [id number] [place] 3+4=7 involving <2% of the prostate gland margins negative. Prostate was PSA history: 06/27/19 7.64 01/31/20 0.84 03/20/20 0.70 05/16/20 0.65 06/26/20 0.76 IPSS 2 ADELSO 4 Interval History Feels well overall. Has complete ED, not a priority for him. He has no incontinence or difficulties with frequency or urgency. He has regular bowel movements daily. 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 Appetite good and weight stable. Past Medical History: CAD DMII HPL HTN Past Surgical History: PCI with stents x 2 Family History: No significant cancer history Social History: Former smoker Does not drink Allergies / Meds Allergies: Coded Allergies: No Known Allergies (Unverified , 10/26/19) Home Meds Active Scripts Bicalutamide (Bicalutamide) 50 Mg Tablet, 1 TAB PO DAILY for 30 Days, #30 TAB Prov:BRENDAN BE MD 07/11/20 Ciprofloxacin HCl (Cipro) 500 Mg Tablet, 500 MG PO DAILY for 14 Days, #14 TAB Prov:LORETO FARRELL MD 10/28/19 Oxycodone/Acetaminophen (Oxycodone-Acetaminophen 5-325) 1 Each Tablet, 1 TAB PO Q4H PRN for MODERATE/SEVERE PAIN (PS 5-10) MDD 6, #30 TAB Prov:LORETO FARRELL MD 10/28/19 Docusate Sodium (Docusate Sodium) 100 Mg Capsule, 100 MG PO BID for 10 Days, #20 CAP Prov:LORETO FARRELL MD 10/28/19 Reported Medications Aspirin (Aspirin EC) 81 Mg Tablet.dr, 81 MG PO DAILY 09/29/19 Metoprolol Succinate (Metoprolol Succinate) 50 Mg Tab.er.24h, 75 MG PO DAILY 09/29/19 Insulin Glargine,Hum.rec.anlog (Lantus Solostar) 100 Unit/1 Ml Insuln.pen, 20 UNITS SC QHS 09/28/19 [place]-3 Fatty Acids/Fish Oil (Fish Oil 1,000 mg Capsule) 1 Each Capsule, 1200 MG PO DAILY 09/28/19 Glimepiride (Glimepiride) 4 Mg Tablet, 4 MG PO DAILY 09/28/19 Amlodipine Besylate (Amlodipine Besylate) 5 Mg Tablet, 5 MG PO DAILY 09/28/19 Lisinopril (Lisinopril) 40 Mg Tablet, 40 MG PO DAILY 09/28/19 Metformin HCl (Metformin HCl) 500 Mg Tablet, 1000 MG PO BID 09/28/19 Pravastatin Sodium (Pravastatin Sodium) 40 Mg Tablet, 40 MG PO DAILY 09/28/19 Fenofibrate,Micronized (Fenofibrate) 134 Mg Capsule, 134 MG PO DAILY 09/28/19 Review of Systems Constitutional: Denies: Chills, Fever, Night Sweats Eyes: Denies: Pain, Vision change HEENT: Denies: Head Aches, Dysphagia, Sore Throat Skin: Denies: Rash, Lesions, Bruising Pulmonary: Denies: Dyspnea, Cough Cardiovascular: Denies: Chest Pain, Palpitations, Edema Gastrointestinal: Denies: Nausea, Vomiting, Abdominal Pain, Diarrhea Genitourinary: Denies: Dysuria, Frequency, Incontinence Hematologic: Denies: Bruising, Petecchia, Enlarged Lymph Nodes Musculoskeletal: Denies: Neck pain, Back pain Neurological: Denies: Weakness, Numbness, Incoordination Psych: Reports: Mood Normal; Denies: Memory Issues, Thoughts of Self Harm Vital Signs Ht 63" Wt 168 lbs BMI 30 T 98 P 78 RR 18 BP 160/70 O2 98% Pain 0 Fatigue 0 General Exam: Positive: Alert, Cooperative, No Acute Distress Eye Exam: Positive: PERRLA, EOMI ENT EXAM: Positive: Mucous membr. moist/pink, Pharynx Normal Neck Exam: Negative: Thyromegaly, Lymphadenopathy Chest Exam: Positive: Normal air movement; Negative: Rales, Rhonchi, Wheezing Heart Exam: Positive: Rate Normal, Regular Rhythm Abdomen Exam: Positive: Soft; Negative: Tenderness, Mass Extremity Exam: Negative: Edema, Tenderness Skin Exam: Positive: Nl turgor and temperature; Negative: Rash Neuro Exam: Positive: Normal Gait, Normal Speech, Cranial Nerves 3-12 NL Psych Exam: Positive: Mental status NL, Mood NL, Memory Intact Diagnostic and Laboratory Diagnostic Review Radiologic images, relevant labs and pathology reports were personally reviewed and discussed with Mr. Olmedo. Assessment and Plan Impression Mr. Olmedo is a 75 year old male former smoker with prostate cancer [id number] [place] 3+4=7 post operative PSA detectable, most recently rising to 0.76 on 06/26/20. He is s/p RALP on 10/26/19. Stage Prostate adenocarcinoma [id number] [place] 3+4=7 post-op PSA to 0.76 Performance Status ECOG 0 Plan We had an extensive discussion with Mr. Olmedo regarding the diagnosis at hand and available therapeutic options. He had by reports a massively enlarged prostate such that at the time of surgery his PSA density was very low. He is well, urinating without difficulty, has ED but not bothersome. I reviewed the [facility] nomogram for bPFS with salvage RT with him. Without ADT the probability of 6 year bPFS is 55% based on his data. With 6 months ADT the probability increases to 75%. Based on this I recommend we proceed with salvage RT 68.4 Gy to the prostate bed and SV, and also a lower dose to pelvic LN as these were not sampled at the time of surgery, and based on the results of the SPPORT trial which suggest a benefit for pelvic RT with PSA levels in excess of 0.34. With this I will give 6 months of lupron. In preparation for lupron he can begin casodex 50 mg daily for the next 30 days. I reviewed the side effects of treatment with him, including fatigue, diarrhea, irritative voiding symptoms, and late rectal bleeding from RT and also fatigue, weight gain, and hot flashes with lupron. He agreed to proceed. We discussed the logistics of receiving radiation therapy in detail including the need for a 1-time planning session. This can occur in ~ 2 weeks on the day of his lupron injection. After discussing the risks, benefits and alternatives to radiation therapy, Mr. Olmedo was amenable to pursuing radiotherapy. All questions were answered to the patient's satisfaction. We instructed the patient that if there were any questions,concerns or changes in clinical status in the interim to contact us. Recommendations Salvage RT 68.4 Gy in 38 fractions with VMAT 6 month ADT Casodex 50 mg daily in anticipation of lupron Billing Statement Total time of [47] minutes was spent preparing for the visit [6], obtaining HPI [5], examining the patient [3], reviewing diagnostic tests [7], discussing management options [12], coordinating care [3], and writing this note [10]. BRENDAN BE MD Jul 11, 2020 13:38
== END ==
LOC: M ONCR 10:41
PROVIDERS: ATTEND General Practice
DX: C61 Malignant neoplasm of prostate (principal)

== ENCOUNTER 2020-07-25 13:17 | Outpatient (RCR) | payer MEDICARE ==
[~2020-07-25 13:17] MED LIST changes: +BACTDSTA PO; -SULF1TAB93 PO
[2020-07-25] MEDS ORDERED: LEUPROLIDE 45MG SYRINGE KIT (LUPRON DEPOT) (FOR ONCOLOGY) IM ONE (14:00)
[2020-07-25] MEDS ORDERED: LEUPROLIDE ACETATE 45 MG ONE (14:00)
== END 2020-07-26 ==
LOC: M ONCR 13:17
PROVIDERS: ATTEND General Practice
DX: C61 Malignant neoplasm of prostate (principal)
CPT/HCPCS: 77334; 96401; J9217

== ENCOUNTER → 2020-08-25 | Outpatient (RCR) | payer MEDICARE ==
[~2020-08-25] MED LIST changes: -BACTDSTA PO; +SULF1TAB93 PO
== END ==
LOC: M ONCR 07-28 14:16
PROVIDERS: ATTEND General Practice
DX: C61 Malignant neoplasm of prostate (principal)

== ENCOUNTER 2020-09-22 10:43 | Outpatient (RCR) | payer MEDICARE ==
[~2020-09-22 10:43] MED LIST changes: +BACTDSTA PO; -SULF1TAB93 PO
== END 2020-09-25 ==
LOC: M ONCR 10:43
PROVIDERS: ATTEND General Practice
DX: C61 Malignant neoplasm of prostate (principal)

== ENCOUNTER 2020-09-28 10:42 | Outpatient (RCR) | payer MEDICARE | END 2020-10-25 | LOC: M ONCR 10:42 | PROVIDERS: ATTEND General Practice | DX: C61 Malignant neoplasm of prostate (principal) ==

== ENCOUNTER → 2021-03-02 | Outpatient (CLI) | payer MEDICARE ==
--- NOTE | 2021-03-02 13:50 | RADONC ---
Radiation Oncology Hx/FUP Radiation Oncology Hx/FUP Date of Service: Mar 02, 2021 Pt Identifier Alvarez Olmedo is a 76 year old male former smoker seen for a followup visit today at the department of radiation oncology for a history of prostate cancer [id number] [place] 3+4=7 post operative PSA detectable, most recently rising to 0.76 on 06/26/20. He is s/p RALP on 10/26/19. He completed salvage RT 68.4 Gy in 38 fractions 08/07/20-09/28/20, he had 45 mg Lupron with this on 07/25/20. Diagnosis/Treatment History Oncologic History Followed by Dr. Farrell for massively enlarged prostate and acute retention requiring catheterization He had known T1c [place] 3+3=6 in 4/12 cores s/p biopsy on 10/05/19 complicated by acute retention He underwent RALP on 10/26/19 [id number] [place] 3+4=7 involving <2% of the prostate gland margins negative. Prostate was PSA history: 06/27/19 7.64 01/31/20 0.84 03/20/20 0.70 05/16/20 0.65 06/26/20 0.76 02/22/21 0.03 Testosterone 02/22/21 20 Interval History Hesham reports no bowel or bladder difficulties at this time. His main bother is persistent fatigue, which has been ever-present over the last few months. He is still able to do all the things he likes to do, just has less stamina while doing them. Current Therapy Surveillance Stage Prostate adenocarcinoma [id number] [place] 3+4=7 post-op PSA to 0.76 Social History: Former smoker Does not drink Allergies / Meds Allergies: Coded Allergies: No Known Allergies (Unverified , 10/26/19) Home Meds Active Scripts Bicalutamide (Bicalutamide) 50 Mg Tablet, 1 TAB PO DAILY for 30 Days, #30 TAB Prov:BRENDAN BE MD 07/11/20 Ciprofloxacin HCl (Cipro) 500 Mg Tablet, 500 MG PO DAILY for 14 Days, #14 TAB Prov:LORETO FARRELL MD 10/28/19 Oxycodone/Acetaminophen (Oxycodone-Acetaminophen 5-325) 1 Each Tablet, 1 TAB PO Q4H PRN for MODERATE/SEVERE PAIN (PS 5-10) MDD 6, #30 TAB Prov:LORETO FARRELL MD 10/28/19 Docusate Sodium (Docusate Sodium) 100 Mg Capsule, 100 MG PO BID for 10 Days, #20 CAP Prov:LORETO FARRELL MD 10/28/19 Reported Medications Aspirin (Aspirin EC) 81 Mg Tablet.dr, 81 MG PO DAILY 09/29/19 Metoprolol Succinate (Metoprolol Succinate) 50 Mg Tab.er.24h, 75 MG PO DAILY 09/29/19 Insulin Glargine,Hum.rec.anlog (Lantus Solostar) 100 Unit/1 Ml Insuln.pen, 20 UNITS SC QHS 09/28/19 [place]-3 Fatty Acids/Fish Oil (Fish Oil 1,000 mg Capsule) 1 Each Capsule, 1200 MG PO DAILY 09/28/19 Glimepiride (Glimepiride) 4 Mg Tablet, 4 MG PO DAILY 09/28/19 Amlodipine Besylate (Amlodipine Besylate) 5 Mg Tablet, 5 MG PO DAILY 09/28/19 Lisinopril (Lisinopril) 40 Mg Tablet, 40 MG PO DAILY 09/28/19 Metformin HCl (Metformin HCl) 500 Mg Tablet, 1000 MG PO BID 09/28/19 Pravastatin Sodium (Pravastatin Sodium) 40 Mg Tablet, 40 MG PO DAILY 09/28/19 Fenofibrate,Micronized (Fenofibrate) 134 Mg Capsule, 134 MG PO DAILY 09/28/19 Review of Systems Review of Systems Constitutional: Reports: Fatigue; Denies: Weight Loss Eyes: Denies: Pain HEENT: Denies: Head Aches Gastrointestinal: Denies: Abdominal Pain, Diarrhea, Hematochezia Genitourinary: Denies: Dysuria, Frequency, Incontinence Neurological: Denies: Weakness, Numbness Psych: Reports: Mood Normal Physical Examination Vital Signs Ht 63" Wt 172.6 lbs BMI 30.5 T 96.1 P 80 RR 17 BP 155/78 O2 97% Pain 0 Fatigue 6 General Exam: Alert, Cooperative, No Acute Distress Eye Exam: EOMI ENT EXAM: Atraumatic Neck Exam: Supple Chest Exam: Clear to auscultation Heart Exam: Rate Normal Abdomen Exam: Soft Extremity Exam: Negative: Edema Skin Exam: Nl turgor and temperature Neuro Exam: Normal Gait, Normal Speech, Cranial Nerves 3-12 NL Psych Exam: Mental status NL Diagnostic and Laboratory Diagnostic Review Radiologic images, relevant labs and pathology reports were personally reviewed and discussed with Mr. Olmedo. Assessment and Plan Impression Assessment Mr. Olmedo is a 76 year old male former smoker seen for a followup visit today at the department of radiation oncology for a history of prostate cancer [id number] [place] 3+4=7 post operative PSA detectable, most recently rising to 0.76 on 06/26/20. He is s/p RALP on 10/26/19. He completed salvage RT 68.4 Gy in 38 fractions 08/07/20-09/28/20, he had 45 mg Lupron with this on 07/25/20. He is doing well from a bowel and bladder standpoint with no bothersome symptoms. He is bothered by persistent fatigue, suspect this is mostly due to continued effect of ADT on testosterone levels which remain castrate. I reassured him that with the return of normal testosterone, the fatigue would likely curly. Hopefully this will occur over the coming months. His PSA is appropriately suppressed at this time. Explained that the real bar-to-pass would be when testosterone is normal range and PSA remains undetectable. To this end I will see him again in 6 months with PSA and testosterone checked. Performance Status ECOG 1 Plan PSA/testosterone in 6 months time Mr. Olmedo was encouraged to call with questions or concerns in the interim period. Billing Statement Total time of [23] minutes was spent preparing for the visit [2], obtaining HPI [5], examining the patient [1], reviewing diagnostic tests [1], discussing management options [7], coordinating care [2], and writing this note [6]. BRENDAN BE MD Mar 02, 2021 13:50
== END ==
LOC: M ONCR 12:34
PROVIDERS: ATTEND General Practice
DX: C61 Malignant neoplasm of prostate (principal); Z79.899 Other long term (current) drug therapy; Z79.84 Long term (current) use of oral hypoglycemic drugs; Z87.891 Personal history of nicotine dependence; Z92.3 Personal history of irradiation

== ENCOUNTER → 2021-09-05 | Outpatient (CLI) | payer MEDICARE | LOC: M ONCR 09:19 | PROVIDERS: ATTEND General Practice | DX: R97.21 Rising PSA following treatment for malignant neoplasm of prostate (principal); Z87.891 Personal history of nicotine dependence; Z85.46 Personal history of malignant neoplasm of prostate; Z79.4 Long term (current) use of insulin; Z79.82 Long term (current) use of aspirin ==

== ENCOUNTER → 2022-03-08 | Outpatient (CLI) | payer MEDICARE | LOC: M ONCR 09:09 | PROVIDERS: ATTEND General Practice | DX: C61 Malignant neoplasm of prostate (principal); Z79.1 Long term (current) use of non-steroidal anti-inflammatories (NSAID); Z79.82 Long term (current) use of aspirin; Z79.84 Long term (current) use of oral hypoglycemic drugs; Z79.891 Long term (current) use of opiate analgesic; Z79.899 Other long term (current) drug therapy; Z87.891 Personal history of nicotine dependence; Z90.79 Acquired absence of other genital organ(s); Z92.23 Personal history of estrogen therapy; Z92.3 Personal history of irradiation ==

== ENCOUNTER → 2022-09-05 | Outpatient (CLI) | payer MEDICARE | LOC: M ONCR 09:47 | PROVIDERS: ATTEND General Practice | DX: C61 Malignant neoplasm of prostate (principal); R97.21 Rising PSA following treatment for malignant neoplasm of prostate; Z79.4 Long term (current) use of insulin; Z79.84 Long term (current) use of oral hypoglycemic drugs; Z79.891 Long term (current) use of opiate analgesic; Z79.899 Other long term (current) drug therapy; Z87.891 Personal history of nicotine dependence; Z90.79 Acquired absence of other genital organ(s); Z92.3 Personal history of irradiation ==

== ENCOUNTER → 2023-02-05 | Outpatient (CLI) | payer MEDICARE | LOC: M ONCR 09:30 | PROVIDERS: ATTEND General Practice | DX: C61 Malignant neoplasm of prostate (principal); R97.21 Rising PSA following treatment for malignant neoplasm of prostate; Z71.2 Person consulting for explanation of examination or test findings; Z79.82 Long term (current) use of aspirin; Z79.4 Long term (current) use of insulin; Z79.84 Long term (current) use of oral hypoglycemic drugs; Z79.899 Other long term (current) drug therapy; Z87.891 Personal history of nicotine dependence; Z90.79 Acquired absence of other genital organ(s); Z92.29 Personal history of other drug therapy; Z92.3 Personal history of irradiation ==

== ENCOUNTER → 2023-08-06 | Outpatient (CLI) | payer MEDICARE ==
[~2023-08-06] MED LIST changes: -ASPI-161 PO; +ASPI-615 PO
== END ==
LOC: M ONCR 08:41
PROVIDERS: ATTEND General Practice
DX: C61 Malignant neoplasm of prostate (principal); Z71.2 Person consulting for explanation of examination or test findings; Z79.4 Long term (current) use of insulin; Z79.82 Long term (current) use of aspirin; Z79.84 Long term (current) use of oral hypoglycemic drugs; Z79.899 Other long term (current) drug therapy; Z87.891 Personal history of nicotine dependence; Z90.79 Acquired absence of other genital organ(s); Z92.29 Personal history of other drug therapy; Z92.3 Personal history of irradiation

== ENCOUNTER 2023-09-15 06:07 | Day surgery (SDC) | payer MEDICARE ==
[~2023-09-15] VITALS: Ht 160 cm; Wt 83.0 kg
[~2023-09-15 06:07] MED LIST changes: +ACTO30TA15 PO; +ROSU20TA61 PO
[2023-09-15] MEDS ORDERED: LR 1,000 ML IV SCH (07:00)
[2023-09-15] MEDS: FLURBIPROFEN 0.03% OPHTH SOLN 2.5 ML OD SCH (07:02)
[2023-09-15] MEDS: ATROPINE SULFATE 1% OPHTH SOLN 2ML BTL OD SCH (07:02)
[2023-09-15] MEDS: TETRACAINE 0.5% OPHTH SOLN 4ML OD SCH (07:02)
[2023-09-15] MEDS: PHENYLEPHRINE 2.5% OPHTH SOL 2ML OD SCH (07:02)
[2023-09-15] MEDS ORDERED: MIDAZOLAM INJ 2MG/2ML VIAL As Ordered ONE (07:08)
[2023-09-15] MEDS ORDERED: fentaNYL 100 MCG/2 ML INJECTION As Ordered ONE (07:08)
[2023-09-15] MEDS: LIDOCAINE 1% SDV 5ML VIAL As Ordered ONE (08:05)
[2023-09-15] MEDS: CEFUROXIME 1MG/0.1ML INTRACAMERAL INJ As Ordered ONE (08:05)
[2023-09-15 08:15] VITALS: BP 156/72; TEMP 97.7; O2SAT 97
== END 2023-09-15 08:25 | disposition home or self-care (01) ==
LOC: M SDC 06:07
PROVIDERS: ATTEND Ophthalmology
DX: H25.11 Age-related nuclear cataract, right eye (principal); I10 Essential (primary) hypertension; E78.5 Hyperlipidemia, unspecified; E11.9 Type 2 diabetes mellitus without complications; Z98.61 Coronary angioplasty status; Z85.46 Personal history of malignant neoplasm of prostate; Z92.3 Personal history of irradiation; Z79.82 Long term (current) use of aspirin; Z79.84 Long term (current) use of oral hypoglycemic drugs; Z79.4 Long term (current) use of insulin; Z79.899 Other long term (current) drug therapy
CPT/HCPCS: 66984; J0697; J2250; J3010; V2632

== ENCOUNTER 2023-10-13 06:12 | Day surgery (SDC) | payer MEDICARE ==
[~2023-10-13] VITALS: Ht 157.5 cm; Wt 83.5 kg
[~2023-10-13 06:12] MED LIST changes: +BICA50TA4 PO; -BICA50TA9 PO; +PIOG1TAB36 PO
[2023-10-13] MEDS: FLURBIPROFEN 0.03% OPHTH SOLN 2.5 ML OS SCH (06:57)
[2023-10-13] MEDS: PHENYLEPHRINE 2.5% OPHTH SOL 2ML OS SCH (06:57)
[2023-10-13] MEDS: TETRACAINE 0.5% OPHTH SOLN 4ML OS SCH (06:57)
[2023-10-13] MEDS: ATROPINE SULFATE 1% OPHTH SOLN 2ML BTL OS SCH (06:57)
[2023-10-13] MEDS ORDERED: LR 1,000 ML IV SCH (07:00)
[2023-10-13] MEDS: LIDOCAINE 1% SDV 5ML VIAL As Ordered ONE (08:14)
[2023-10-13] MEDS: CEFUROXIME 1MG/0.1ML INTRACAMERAL INJ As Ordered ONE (08:14)
[2023-10-13] MEDS ORDERED: fentaNYL 100 MCG/2 ML INJECTION As Ordered ONE (08:24)
[2023-10-13] MEDS ORDERED: MIDAZOLAM INJ 2MG/2ML VIAL As Ordered ONE (08:24)
[2023-10-13 08:35] VITALS: BP 154/68; TEMP 97.1; O2SAT 94
== END 2023-10-13 08:48 | disposition home or self-care (01) ==
LOC: M SDC 06:12
PROVIDERS: ATTEND Ophthalmology
DX: E11.36 Type 2 diabetes mellitus with diabetic cataract (principal); H25.12 Age-related nuclear cataract, left eye; I10 Essential (primary) hypertension; E78.00 Pure hypercholesterolemia, unspecified; Z95.5 Presence of coronary angioplasty implant and graft; Z85.46 Personal history of malignant neoplasm of prostate; Z79.899 Other long term (current) drug therapy; Z79.82 Long term (current) use of aspirin; Z92.3 Personal history of irradiation; Z79.4 Long term (current) use of insulin
CPT/HCPCS: 66984; J0697; J2250; J3010; V2632

== ENCOUNTER → 2024-02-05 | Outpatient (CLI) | payer MEDICARE ==
[~2024-02-05] MED LIST changes: -ROSU20TA61 PO; +ROSU20TA86 PO
== END ==
LOC: M ONCR 08:48
PROVIDERS: ATTEND General Practice
DX: Z08 Encounter for follow-up examination after completed treatment for malignant neoplasm (principal); R97.21 Rising PSA following treatment for malignant neoplasm of prostate; Z79.4 Long term (current) use of insulin; Z79.82 Long term (current) use of aspirin; Z79.84 Long term (current) use of oral hypoglycemic drugs; Z79.899 Other long term (current) drug therapy; Z85.46 Personal history of malignant neoplasm of prostate; Z87.891 Personal history of nicotine dependence; Z92.29 Personal history of other drug therapy; Z92.3 Personal history of irradiation

== ENCOUNTER → 2024-08-10 | Outpatient (CLI) | payer MEDICARE | LOC: M ONCR 08:48 | PROVIDERS: ATTEND General Practice | DX: C61 Malignant neoplasm of prostate (principal); Z90.79 Acquired absence of other genital organ(s); Z92.3 Personal history of irradiation; Z87.891 Personal history of nicotine dependence; Z79.82 Long term (current) use of aspirin; Z79.84 Long term (current) use of oral hypoglycemic drugs; Z79.899 Other long term (current) drug therapy ==